=== PATIENT | female | born 1955 | race African-American/Black ===

== ENCOUNTER 2023-04-20 15:57 | Emergency (ER) | payer OTHER ==
[2023-04-20 16:11] VITALS: PULSE 82; RESP 18; TEMP 98; BMI 27.4
[2023-04-20 18:36] LABS: BASO % 0.7 % (0-2.0); EOS % 1.8 % (0-4.5); HEMATOCRIT 38.5 % (32.4-45.2); HEMOGLOBIN 12.3 GM/dL (10.7-15.3); LYMPH % 27.6 % (8-40); MCH 27.3 pg (25.7-33.7); MCHC 31.9 g/dl (32.0-36.0); MEAN CELL VOLUME 85.6 fl (80-96); MEAN PLT VOLUME 10.9 fl (7.5-11.1); MONO % 11.9 % (3.8-10.2); PLATELET COUNT 139 10^3/uL (134-434); RBC 4.49 M/mm3 (3.60-5.2); RDW 13.7 % (11.6-15.6); WHITE BLOOD COUNT 5.2 K/mm3 (4.0-10.0)
[2023-04-20 18:52] LABS: POTASSIUM 3.6 mmol/L (3.5-5.1)
[2023-04-20 18:54] LABS: ALBUMIN 3.9 g/dl (3.4-5.0); BLOOD UREA NITROGEN 15.7 mg/dL (7-18); CALCIUM 9.1 mg/dL (8.5-10.1); MAGNESIUM 2.2 mg/dL (1.8-2.4)
[2023-04-20 18:55] LABS: PH,URINE 5.5 (5.0-8.0); URINE APPEARANCE CLEAR; URINE BILIRUBIN NEGATIVE (NEGATIVE); URINE COLOR YELLOW; URINE GLUCOSE (UA) NEGATIVE (NEGATIVE); URINE KETONE NEGATIVE (NEGATIVE); URINE LEUK ESTERASE NEGATIVE (NEGATIVE); URINE NITRITE NEGATIVE (NEGATIVE); URINE PROTEIN NEGATIVE (NEGATIVE); URINE UROBILINOGEN 0.2 mg/dL (0.2-1.0)
[2023-04-20 18:57] LABS: CREATININE 1.2 mg/dL (0.55-1.3)
[2023-04-20 18:59] LABS: BILIRUBIN,TOTAL 0.9 mg/dL (0.2-1)
[2023-04-20 19:28] VITALS: BP 168/105
== END 2023-04-20 19:28 | disposition home or self-care (01) ==
LOC: JER 15:57
DX: I10 Essential (primary) hypertension (principal); H53.8 Other visual disturbances; R20.2 Paresthesia of skin
CPT/HCPCS: 36415; 80053; 81003; 83735; 85025; 93005; 93010; 99284-25